=== PATIENT | female | born 1990 | race Caucasian/White ===

== ENCOUNTER 2022-01-08 14:14 | Inpatient (IN) ==
[2022-01-08] MEDS ORDERED: OXYTOCIN 30 UNITS/500 ML BAG IV PRN ×2 (14:18→16:28)
[2022-01-08] MEDS ORDERED: PENICILLIN G POTASSIUM 6 MU in DEXTROSE 5% 250 ML IV STA (14:21)
--- NOTE | 2022-01-08 14:22 | History & Physical Report ---
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 Contractions were every 10 to 15 minutes this morning starting from midnight and they spaced out to every 15 to 8:30 AM. She called and was seen in the office for labor check. She also noted small amount of pinkish leakage of fluid after midnight on January 07 and has been off and on in small amounts since then. She reports good movements. She denies abdominal pain between contractions, fever, chills, nausea or vomiting. She went to the office and her cervix was found to be 5 cm dilated and her ROM tests results came back positive. Now she is being admitted and starting penicillin. Her has been uncomplicated except, 1. IVF , 2. History of foot surgery in first trimester 3. GBS+ Allergies Allergy/AdvReac Type Severity Reaction Status Date / Time No Known Allergies Allergy Verified 06/19/21 09:27 Home Medications Medication Instructions Recorded Confirmed Type vit no.133-ferrous 1 tab PO QAM 06/18/21 06/19/21 History fumarate 28 mg-folic acid 800 mcg tablet () progesterone micronized 200 mg 200 mg VAGINAL BID 06/18/21 06/19/21 History capsule acetaminophen 500 mg tablet 1,000 mg PO Q8H PRN #100 tab 06/19/21 Rx (Tylenol Extra Strength) aspirin 81 mg tablet,delayed 81 mg PO DAILY #30 tab 06/19/21 Rx release Patient History Medical History Currently 10 weeks Fracture dislocation of tarsometatarsal joint Multiple closed fractures of right foot Surgical History H/O vaginal surgery (~02/2021) egg retrieval with anesthesia History of hysterosalpingogram History of in vitro fertilization (04/23/21) [facility] Mandi, follows locally with [facility] application design engineer. 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 History No history of STDs Physical Exam Constitutional: WD/WN, vitals as above well developed, well nourished and + acute distress (with contractions) Gastrointestinal (Abdomen): Inspection/Auscultation: + abdomen distended (gravid, nontender) Genitourinary: normal external appearance Manual OB Exam: + cervical dilation 5 cm, + cervical effacement 80% and + station -2 OB Exam Monitor Tracing: + external uterine monitor used and + category I Results & Data ([facility]) Laboratory Results Lab Results 01/08/22 Range/Units 14:33 WBC 6.94 (4.8-10.8) K/uL RBC 4.17 L (4.2-5.4) M/uL Hgb 11.2 L (12.0-16.0) g/dL Hct 35.3 L (37-47) % MCV 84.7 (80-100) fL MCH 26.9 (25-34) pg MCHC 31.7 L (32-36) g/dL RDW Std Deviation 57.0 H (36.4-46.3) fL RDW Coeff of Tiago 18.7 H (11.5-14.5) % Plt Count 195 (130-400) K/uL MPV 11.5 H (7.4-10.4) fL
[2022-01-08 14:40] LABS: Hematocrit (blood only) 35.3 % (37-47); Hemoglobin 11.2 g/dL (12.0-16.0); Mean Corpuscular Hemoglobin 26.9 pg (25-34); Mean Corpuscular Hgb Conc 31.7 g/dL (32-36); Mean Corpuscular Volume 84.7 fL (80-100); Mean Platelet Volume 11.5 fL (7.4-10.4); Platelet Count 195 K/uL (130-400); RDW Coefficient of Variation 18.7 % (11.5-14.5); Red Blood Count 4.17 M/uL (4.2-5.4); White Blood Count 6.94 K/uL (4.8-10.8)
[2022-01-08] MEDS: LACTATED RINGER'S 1,000 ML IV PRN ×3 (14:45→20:34)
[2022-01-08] MEDS ORDERED: NALBUPHINE HCL INJ 10 MG/ML AMP IV PRN (15:31)
[2022-01-08] MEDS ORDERED: diphenhydrAMINE 50 MG/ML VIAL IV PRN (15:31)
[2022-01-08] MEDS ORDERED: fentaNYL 2MCG/ML ROPIVACAINE 1.25MG/ML 100 ML BAG EPI PRN (15:31)
[2022-01-08] MEDS ORDERED: ePHEDrine sulfate 50 MG/ML AMP IV PRN (15:31)
[2022-01-08] MEDS ORDERED: NALOXONE HCL 0.4 MG/1 ML VIAL/CARP IV PRN (15:31)
[2022-01-08] MEDS ORDERED: SODIUM CHLORIDE 0.9% INJ 10 ML VIAL ONE (15:31)
[2022-01-08] MEDS ORDERED: NALOXONE HCL 1 MG in SODIUM CHLORIDE 0.9% 1000ML 1,000 ML IV PRN (15:31)
[2022-01-08] MEDS ORDERED: ePHEDrine sulfate 50 MG/ML AMP ONE (15:31)
[2022-01-08] MEDS ORDERED: BUPIVACAINE 0.25% 30 ML VIAL ONE (15:31)
--- NOTE | 2022-01-08 15:31 | Anesthesiology Consultation ---
Date of Service January 08, 2022 Assessment & Plan (1) Encounter for pre-operative examination: Chart Review Chart Review: Acceptable Risk for Surgery and Patient NOT seen in Pre Admission Testing Consults Requested none History Allergies Allergy/AdvReac Type Severity Reaction Status Date / Time No Known Allergies Allergy Verified 01/08/22 15:12 Medications Home Medications Medication Instructions Recorded Confirmed Last Taken vit no.133-ferrous 1 tab PO QAM 06/18/21 01/08/22 01/08/22 08:00 fumarate 28 mg-folic acid 800 mcg tablet () progesterone micronized 200 mg 200 mg VAGINAL BID 06/18/21 06/19/21 06/19/21 01:00 capsule acetaminophen 500 mg tablet 1,000 mg PO Q8H PRN #100 tab 06/19/21 01/08/22 08:00 (Tylenol Extra Strength) aspirin 81 mg tablet,delayed 81 mg PO DAILY #30 tab 06/19/21 Unknown release Active Medications Generic Name Dose Route Start Last Admin Trade Name Freq PRN Reason Stop Dose Admin Lactated Ringer's 1,000 mls @ 150 mls/hr 01/08/22 14:18 01/08/22 15:04 Lr IV 01/10/22 14:17 999 mls/hr .[id number] PRN Administration L&D Protocol Protocol Past Medical History Medical History Currently 10 weeks Fracture dislocation of tarsometatarsal joint Multiple closed fractures of right foot Past Family History Family History Other No family history of adverse response to anesthesia Past Surgical History Surgical History H/O vaginal surgery (~02/2021) egg retrieval with anesthesia History of hysterosalpingogram History of in vitro fertilization (04/23/21) [facility] Mandi, follows locally with [facility] chemical research technician. Social History Smoking Status: Never smoker Hx Alcohol Use: No Hx Substance Use: No substance use type: does not use Physical Exam Vital Signs Last Vital Signs Pulse 74 01/08/22 14:30 BP 103/68 01/08/22 14:30 Testing Laboratory Results 01/08/22 14:33
[2022-01-08] MEDS ORDERED: fentaNYL 2MCG/ML ROPIVACAINE 1.25MG/ML 100 ML BAG EPI ONE (15:32)
[2022-01-08] MEDS ORDERED: fentaNYL citrate 100 MCG/2 ML VIAL ONE (15:32)
[2022-01-08] MEDS ORDERED: ONDANSETRON INJ 2 MG/ML 2 ML VIAL IV PRN (16:28)
--- NOTE | 2022-01-08 18:15 | Obstetrical Progress Note ---
Date of Service January 08, 2022 Assessment & Plan Admission and Anticipated Discharge Date Admission Date: January 08, 2022 Subjective Patient is reevaluated. She received epidural for pain and now comfortable. Co ntractions are every 10 to 12 minutes, heart rate is reassuring with category 1 strip and cervix is unchanged at 5-6 cm dilated, 80% effaced, large bulging bag and head at -3 station. Plan to augment with low-dose oxytocin per protocol and AROM with second dose of penicillin. Continue to monitor closely. Results & Data ([facility]) Vital Signs (Past 12 Hours) Vital Signs Temp Pulse Resp BP Pulse Ox 01/08/22 18:11 68 113/70 01/08/22 18:09 65 99 01/08/22 18:04 67 99 01/08/22 17:59 70 99 01/08/22 17:57 69 108/72 01/08/22 17:54 65 99 01/08/22 17:49 75 98 01/08/22 17:44 75 99 01/08/22 17:42 65 137/72 01/08/22 17:39 70 99 01/08/22 17:34 73 99 01/08/22 17:29 71 98 01/08/22 17:27 69 103/70 01/08/22 17:24 67 98 01/08/22 17:19 65 98 01/08/22 17:14 65 99 01/08/22 17:12 37.1 C 60 18 109/62 01/08/22 17:09 63 98 01/08/22 17:04 65 98 01/08/22 16:59 66 98 01/08/22 16:57 63 113/62 01/08/22 16:54 63 98 01/08/22 16:49 72 98 01/08/22 16:44 61 99 01/08/22 16:42 60 140/78 01/08/22 16:39 63 100 01/08/22 16:34 63 99 01/08/22 16:29 67 99 01/08/22 16:26 70 129/74 01/08/22 16:24 68 99 01/08/22 16:19 80 99 01/08/22 16:14 68 99 01/08/22 16:09 68 122/75 99 01/08/22 16:07 71 120/71 01/08/22 16:06 69 119/78 01/08/22 16:04 72 99 01/08/22 16:03 65 113/65 01/08/22 16:01 66 124/78 01/08/22 15:59 84 100 01/08/22 15:58 78 119/71 01/08/22 15:55 73 151/83 H 01/08/22 15:54 75 100 01/08/22 15:49 80 100 01/08/22 15:44 90 100 01/08/22 15:39 71 100 01/08/22 15:19 74 103/68 01/08/22 15:05 37.1 C 18 01/08/22 14:30 37.1 C 74 18 103/68
[2022-01-08] MEDS: PENICILLIN G POTASSIUM 3 MU in DEXTROSE 5% 100 ML IV PRN ×2 (18:35→22:32)
--- NOTE | 2022-01-08 19:46 | Obstetrical Progress Note ---
Date of Service January 08, 2022 Assessment & Plan Admission and Anticipated Discharge Date Admission Date: January 08, 2022 Subjective Patient is comfortable VE; 6/ 80%/ -2, large bulging bag, AROM'ed, moderate meconium fluids, FHR categ I Ctxs irregular, Pitocin is at 4 miu/ min Continue to monitor closely, augment with Pitocin Results & Data ([facility]) Vital Signs (Past 12 Hours) Vital Signs Temp Pulse Resp BP Pulse Ox 01/08/22 19:41 60 116/57 L 01/08/22 19:39 63 98 01/08/22 19:34 66 99 01/08/22 19:29 60 98 01/08/22 19:26 59 L 118/60 01/08/22 19:24 61 98 01/08/22 19:19 56 L 97 01/08/22 19:14 68 99 01/08/22 19:13 36.7 C 18 01/08/22 19:11 65 128/66 01/08/22 19:09 72 98 01/08/22 19:04 68 99 01/08/22 18:59 67 99 01/08/22 18:56 67 103/58 L 01/08/22 18:54 74 98 01/08/22 18:49 69 98 01/08/22 18:44 73 99 01/08/22 18:42 70 103/54 L 01/08/22 18:39 68 99 01/08/22 18:34 71 98 01/08/22 18:29 75 100 01/08/22 18:26 69 118/75 01/08/22 18:24 70 99 01/08/22 18:19 63 98 01/08/22 18:14 73 99 01/08/22 18:11 68 113/70 01/08/22 18:09 65 99 01/08/22 18:05 36.6 C 16 01/08/22 18:04 67 99 01/08/22 17:59 70 99 01/08/22 17:57 69 108/72 01/08/22 17:54 65 99 01/08/22 17:49 75 98 01/08/22 17:44 75 99 01/08/22 17:42 65 137/72 01/08/22 17:39 70 99 01/08/22 17:34 73 99 01/08/22 17:29 71 98 01/08/22 17:27 69 103/70 01/08/22 17:24 67 98 01/08/22 17:19 65 98 01/08/22 17:14 65 99 01/08/22 17:12 37.1 C 60 18 109/62 01/08/22 17:09 63 98 01/08/22 17:04 65 98 01/08/22 16:59 66 98 01/08/22 16:57 63 113/62 01/08/22 16:54 63 98 01/08/22 16:49 72 98 01/08/22 16:44 61 99 01/08/22 16:42 60 140/78 01/08/22 16:39 63 100 01/08/22 16:34 63 99 01/08/22 16:29 67 99 01/08/22 16:26 70 129/74 01/08/22 16:24 68 99 01/08/22 16:19 80 99 01/08/22 16:14 68 99 01/08/22 16:09 68 122/75 99 01/08/22 16:07 71 120/71 01/08/22 16:06 69 119/78 01/08/22 16:04 72 99 01/08/22 16:03 65 113/65 01/08/22 16:01 66 124/78 01/08/22 15:59 84 100 01/08/22 15:58 78 119/71 01/08/22 15:55 73 151/83 H 01/08/22 15:54 75 100 01/08/22 15:49 80 100 01/08/22 15:44 90 100 01/08/22 15:39 71 100 01/08/22 15:19 74 103/68 01/08/22 15:05 37.1 C 18 03 14:30 37.1 C 74 18 103/68
--- NOTE | 2022-01-08 21:25 | Obstetrical Progress Note ---
Date of Service January 08, 2022 Assessment & Plan Admission and Anticipated Discharge Date Admission Date: January 08, 2022 Subjective VE; 9/ 90%/ 1 FHR early decels with ctxswith quick recovery, accels+ Continue to monitor closely Results & Data ([facility]) Vital Signs (Past 12 Hours) Vital Signs Temp Pulse Resp BP Pulse Ox 01/08/22 21:19 57 L 99 01/08/22 21:14 36.7 C 56 L 18 99 01/08/22 21:11 56 L 109/64 01/08/22 21:09 57 L 98 01/08/22 21:04 61 100 01/08/22 20:59 58 L 98 01/08/22 20:56 52 L 100/58 L 01/08/22 20:54 50 L 98 01/08/22 20:49 58 L 98 01/08/22 20:44 56 L 99 01/08/22 20:41 53 L 18 110/59 L 01/08/22 20:39 52 L 100 01/08/22 20:34 56 L 99 01/08/22 20:29 56 L 99 01/08/22 20:27 62 115/65 01/08/22 20:24 57 L 99 01/08/22 20:19 59 L 99 01/08/22 20:14 57 L 99 01/08/22 20:11 52 L 113/64 01/08/22 20:09 60 99 01/08/22 20:04 60 99 01/08/22 19:59 58 L 99 01/08/22 19:57 62 120/66 01/08/22 19:54 65 98 01/08/22 19:49 64 99 01/08/22 19:44 61 98 01/08/22 19:41 60 116/57 L 01/08/22 19:39 63 98 01/08/22 19:34 66 99 01/08/22 19:29 60 98 01/08/22 19:26 59 L 118/60 01/08/22 19:24 61 98 01/08/22 19:19 56 L 97 01/08/22 19:14 68 99 01/08/22 19:13 36.7 C 18 01/08/22 19:11 65 128/66 01/08/22 19:09 72 98 01/08/22 19:04 68 99 01/08/22 18:59 67 99 01/08/22 18:56 67 103/58 L 01/08/22 18:54 74 98 01/08/22 18:49 69 98 01/08/22 18:44 73 99 01/08/22 18:42 70 103/54 L 01/08/22 18:39 68 99 01/08/22 18:34 71 98 01/08/22 18:29 75 100 01/08/22 18:26 69 118/75 01/08/22 18:24 70 99 01/08/22 18:19 63 98 01/08/22 18:14 73 99 01/08/22 18:11 68 113/70 01/08/22 18:09 65 99 01/08/22 18:05 36.6 C 16 01/08/22 18:04 67 99 01/08/22 17:59 70 99 01/08/22 17:57 69 108/72 01/08/22 17:54 65 99 01/08/22 17:49 75 98 01/08/22 17:44 75 99 01/08/22 17:42 65 137/72 01/08/22 17:39 70 99 01/08/22 17:34 73 99 01/08/22 17:29 71 98 01/08/22 17:27 69 103/70 01/08/22 17:24 67 98 01/08/22 17:19 65 98 01/08/22 17:14 65 99 01/08/22 17:12 37.1 C 60 18 109/62 01/08/22 17:09 63 98 01/08/22 17:04 65 98 01/08/22 16:59 66 98 01/08/22 16:57 63 113/62 01/08/22 16:54 63 98 01/08/22 16:49 72 98 01/08/22 16:44 61 99 01/08/22 16:42 60 140/78 01/08/22 16:39 63 100 01/08/22 16:34 63 99 01/08/22 16:29 67 99 01/08/22 16:26 70 129/74 01/08/22 16:24 68 99 01/08/22 16:19 80 99 01/08/22 16:14 68 99 01/08/22 16:09 68 122/75 99 01/08/22 16:07 71 120/71 01/08/22 16:06 69 119/78 01/08/22 16:04 72 99 01/08/22 16:03 65 113/65 01/08/22 16:01 66 124/78 01/08/22 15:59 84 100 01/08/22 15:58 78 119/71 01/08/22 15:55 73 151/83 H 01/08/22 15:54 75 100 01/08/22 15:49 80 100 01/08/22 15:44 90 100 01/08/22 15:39 71 100 01/08/22 15:19 74 103/68 01/08/22 15:05 37.1 C 18 01/08/22 14:30 37.1 C 74 18 103/68
[2022-01-08] MEDS ORDERED: MINERAL OIL 30 ML UDC ONE (23:03)
[2022-01-09] MEDS ORDERED: HYDROCORTISONE ACETATE 25 MG SUPP PR PRN (00:03)
[2022-01-09] MEDS ORDERED: ACETAMINOPHEN 325 MG TAB PO PRN (00:03)
[2022-01-09] MEDS ORDERED: DIPHTHERIA/TETANUS/PERTUSSIS 0.5 ML SYR/VIAL IM ONE (00:03)
[2022-01-09] MEDS ORDERED: OXYTOCIN 30 UNITS/500 ML BAG IV PRN (00:03)
[2022-01-09] MEDS ORDERED: oxyCODONE/ACETAMINOPHEN 5mg/325mg TAB PO PRN (00:03)
[2022-01-09] MEDS ORDERED: BENZOCAINE 20% AER SPR 82.5 GM CAN EXT PRN (00:03)
[2022-01-09] MEDS ORDERED: MEASLES, MUMPS & RUBELLA VIRUS VIAL SQ ONE (00:03)
--- NOTE | 2022-01-09 00:14 | Delivery Summary ---
Vaginal Delivery Summary Date of Service January 09, 2022 Vaginal Delivery Summary Patient was found to be fully dilated and desire to push. She pushed for 30 minutes and delivered the head without difficulty. The shoulders were delivered with minimal traction and baby was handed off to the mother where mouth and nose were suctioned and cord was clamped times and cut at 1 minute delay. The baby was vigorously moving and crying. The cord blood was obtained. Then the vagina and perineum were checked for lacerations there was a partial third-degree perineal laceration. Rectal exam was done and confirmed this to be a partial third-degree, with some of the external sphincter muscles intact and mild tone noted. Rest of the vagina and labia were intact. The gloves were changed and then these external sphincter muscles of anus were held with 2 Allis clamps supported with perineal body muscles and brought to midline. With 2-0 Vicryl U type of sutures and figure of 8 sutures were placed around his muscles. And rectal exam was repeated and excellent sphincter tone and integrity was noted. Gloves were changed again and rest after perineal body muscles bulbocavernosus muscles were repaired with 2-0 Vicryl in a running locked fashion. Then the vagina mucosa was brought together with another 2-0 Vicryl in a running locked fashion and skin in a subcuticular fashion. Excellent hemostasis was achieved. Rectal exam was repeated and excellent tone was noted and no sutures were felt. Then the placenta was found to be in the vagina and delivered spontaneously as intact and complete. Uterus was explored and found to be empty, lower segment was cleared of all clots and debris, fundus was firm and EBL was 100 mL. Mom and baby tolerated procedure well, there was a viable male infant Apgars 8/10 and weight is pending. No complications happened and I was present during whole procedure. At the end of the procedure the sponge, needle and instrument count was correct x2.
[2022-01-09] MEDS: IBUPROFEN 600 MG TAB PO PRN ×4 (00:37→21:16)
--- NOTE | 2022-01-09 01:03 | Anesthesia Procedure Note ---
Date of Service January 09, 2022 Anesthesia Post Epidural Note Vital Signs Vital Signs: Temp Pulse Resp BP Pulse Ox 98.1 F 73 16 102/55 L 100 01/08/22 23:41 01/09/22 00:41 01/09/22 00:41 01/09/22 00:41 01/08/22 23:44 Pain Intensity Lower Back: Pain Intensity: 7 Notes Mental Status: alert / awake / arousable and participated in evaluation Nausea / Vomiting: adequately controlled Pain: adequately controlled Airway Patency, RR, SpO2: stable & adequate BP & HR: stable & adequate Hydration State: stable & adequate Neuraxial Anesthesia: was administered and sensory block is resolving Anesthetic Complications: no major complications apparent and Pt Satisfied with anesthetic care Epidural: Removed without complications and With tip intact
[2022-01-09] MEDS: FERROUS SULFATE 325 MG TAB PO SCH (08:57)
[2022-01-09] MEDS: DOCUSATE SODIUM 100 MG CAP PO SCH ×2 (08:57→21:16)
[2022-01-09] MEDS: PRENATAL VITAMIN 1 TAB PO SCH (09:03)
[2022-01-09] MEDS: POLYETHYLENE (MIRALAX) 17 GM PACK PO SCH (09:12)
--- NOTE | 2022-01-09 09:37 | Obstetrical Progress Note ---
Date of Service January 09, 2022 Assessment & Plan Admission and Anticipated Discharge Date Admission Date: January 08, 2022 Subjective Patient is seen and examined. She feels well, no complaints other than soreness in vagina. Ambulating without dizziness Voiding without difficulty Tolerating regular diet with out N&V Bleeding is minimal No fever/ chills/ CP/ SOB/ N&V/ Leg pain Breast feeding without problems Vital Signs Temp Pulse Pulse Resp BP BP Pulse Ox 01/09/22 07:40 36.7 C 57 L 16 118/77 99 01/09/22 04:00 36.6 C 63 16 112/70 98 01/09/22 01:40 68 16 108/66 01/09/22 01:25 85 106/64 01/09/22 01:15 88 104/63 01/09/22 01:11 76 16 89/59 L 01/09/22 00:41 73 16 102/55 L 01/09/22 00:26 66 18 113/67 01/09/22 00:10 54 L 18 124/74 01/08/22 23:55 51 L 18 132/71 01/08/22 23:44 70 100 01/08/22 23:41 36.7 C 66 18 134/69 01/08/22 23:39 70 100 01/08/22 23:34 68 100 01/08/22 23:29 62 100 01/08/22 23:26 60 135/79 01/08/22 23:24 61 100 01/08/22 23:19 68 100 01/08/22 23:14 75 100 01/08/22 23:12 69 91 01/08/22 23:09 76 100 01/08/22 23:04 93 H 100 01/08/22 22:59 89 99 01/08/22 22:57 68 126/77 01/08/22 22:54 59 L 100 01/08/22 22:49 51 L 99 01/08/22 22:44 54 L 99 01/08/22 22:41 55 L 100/58 L 01/08/22 22:40 36.5 C 16 01/08/22 22:39 55 L 100 01/08/22 22:34 56 L 99 01/08/22 22:29 63 99 01/08/22 22:26 55 L 107/61 03/04/22 22:24 57 L 97 01/08/22 22:19 57 L 97 01/08/22 22:14 55 L 98 01/08/22 22:12 55 L 125/62 01/08/22 22:09 56 L 97 01/08/22 22:04 58 L 97 01/08/22 21:59 57 L 98 01/08/22 21:57 59 L 123/75 01/08/22 21:54 57 L 99 01/08/22 21:49 59 L 99 01/08/22 21:44 61 99 01/08/22 21:43 58 L 133/81 01/08/22 21:39 57 L 99 Lab Results 01/08/22 01/08/22 Range/Units 14:33 14:50 WBC 6.94 (4.8-10.8) K/uL RBC 4.17 L (4.2-5.4) M/uL Hgb 11.2 L (12.0-16.0) g/dL Hct 35.3 L (37-47) % MCV 84.7 (80-100) fL MCH 26.9 (25-34) pg MCHC 31.7 L (32-36) g/dL RDW Std Deviation 57.0 H (36.4-46.3) fL RDW Coeff of Tiago 18.7 H (11.5-14.5) % Plt Count 195 (130-400) K/uL MPV 11.5 H (7.4-10.4) fL SARS-CoV-2, RNA, NAAT NEGATIVE (NEGATIVE) PE: General: Alert, orientedx3, NAD Abd: soft, NT, fundus firm, below Umbilicus Perineum intact, Lochia rubra minimal Ext; NT, no edema AP: 31 yo s/p , ppd# 1 VSS Afebrile doing well Continue routine care All questions were answered D/C home tomorrow Results & Data ([facility]) Vital Signs (Past 12 Hours) Vital Signs Temp Pulse Pulse Resp BP BP Pulse Ox 01/09/22 07:40 36.7 C 57 L 16 118/77 99 01/09/22 04:00 36.6 C 63 16 112/70 98 01/09/22 01:40 68 16 108/66 01/09/22 01:25 85 106/64 01/09/22 01:15 88 104/63 01/09/22 01:11 76 16 89/59 L 01/09/22 00:41 73 16 102/55 L 01/09/22 00:26 66 18 113/67 01/09/22 00:10 54 L 18 124/74 01/08/22 23:55 51 L 18 132/71 01/08/22 23:44 70 100 01/08/22 23:41 36.7 C 66 18 134/69 01/08/22 23:39 70 100 01/08/22 23:34 68 100 01/08/22 23:29 62 100 01/08/22 23:26 60 135/79 01/08/22 23:24 61 100 01/08/22 23:19 68 100 01/08/22 23:14 75 100 01/08/22 23:12 69 91 01/08/22 23:09 76 100 01/08/22 23:04 93 H 100 01/08/22 22:59 89 99 01/08/22 22:57 68 126/77 01/08/22 22:54 59 L 100 01/08/22 22:49 51 L 99 01/08/22 22:44 54 L 99 01/08/22 22:41 55 L 100/58 L 01/08/22 22:40 36.5 C 16 01/08/22 22:39 55 L 100 01/08/22 22:34 56 L 99 01/08/22 22:29 63 99 01/08/22 22:26 55 L 107/61 01/08/22 22:24 57 L 97 01/08/22 22:19 57 L 97 01/08/22 22:14 55 L 98 01/08/22 22:12 55 L 125/62 01/08/22 22:09 56 L 97 01/08/22 22:04 58 L 97 01/08/22 21:59 57 L 98 01/08/22 21:57 59 L 123/75 01/08/22 21:54 57 L 99 01/08/22 21:49 59 L 99 01/08/22 21:44 61 99 01/08/22 21:43 58 L 133/81 01/08/22 21:39 57 L 99
[2022-01-10 06:05] LABS: Hematocrit (blood only) 29.5 % (37-47); Hemoglobin 9.1 g/dL (12.0-16.0); Mean Corpuscular Hemoglobin 26.3 pg (25-34); Mean Corpuscular Hgb Conc 30.8 g/dL (32-36); Mean Corpuscular Volume 85.3 fL (80-100); Mean Platelet Volume 11.2 fL (7.4-10.4); Platelet Count 176 K/uL (130-400); RDW Coefficient of Variation 18.8 % (11.5-14.5); RDW Standard Deviation 57.6 fL (36.4-46.3); Red Blood Count 3.46 M/uL (4.2-5.4); White Blood Count 8.62 K/uL (4.8-10.8)
[2022-01-10] MEDS: POLYETHYLENE (MIRALAX) 17 GM PACK PO SCH (08:52)
[2022-01-10] MEDS: IBUPROFEN 600 MG TAB PO PRN (08:54)
[2022-01-10] MEDS: DOCUSATE SODIUM 100 MG CAP PO SCH (08:54)
[2022-01-10] MEDS: PRENATAL VITAMIN 1 TAB PO SCH (08:56)
[2022-01-10] MEDS: FERROUS SULFATE 325 MG TAB PO SCH (08:56)
--- NOTE | 2022-01-10 09:53 | Obstetrical Progress Note ---
Date of Service January 10, 2022 Assessment & Plan (1) Normal course: PPD #2 pt doing well wishes to be discharged home Subjective Ambulation: ambulating normally Voiding: no voiding problems Passing Gas:: Yes Diet Tolerance:: regular diet Lochia:: Small Feeding Type:: breast feeding Review of Systems All systems reviewed & are unremarkable except as noted in HPI & below Physical Exam Constitutional WD/WN, vitals as above well developed and well nourished Eyes PERRL, conjunctivae normal, anicteric sclerae Neck trachea midline, no thyromegaly Respiratory normal respiratory effort, lungs clear to auscultation Auscultation: no crackles, no rales and no wheezes Cardiovascular RRR, no murmur, no edema Gastrointestinal (Abdomen) normal bowel sounds, soft, nontender, no hepatosplenomegaly Uterus is below umbilicus Musculoskeletal no cyanosis or clubbing, extremities motor strength 5/5 Skin no rashes, warm and dry Neurologic patellar DTR's 2+ bilat, sensation intact Psychiatric A+Ox3, euthymic affect Genitourinary normal external appearance Results & Data ([facility]) Vital Signs (Past 12 Hours) Vital Signs Temp Pulse Resp BP 01/09/22 23:10 36.7 C 64 18 108/70
[2022-01-10] MEDS ORDERED: HYDROCORTISONE HC 2.5% CRM 30GM TUBE EXT PRN (10:00)
[2022-01-10] MEDS ORDERED: bisacodyL 5 MG TABEC PO SCH (20:00)
[2022-01-11] MEDS ORDERED: bisacodyL 10 MG SUPP PR PRN (00:03)
== END 2022-01-10 14:35 | disposition home or self-care (01) | DRG 806 ==
LOC: OPB 14:14 → 4S1 14:15 → 4S2 01-09 02:28
DX: O77.0 Labor and delivery complicated by meconium in amniotic fluid; O99.824 Streptococcus B carrier state complicating childbirth; Z79.82 Long term (current) use of aspirin; O76 Abnormality in fetal heart rate and rhythm complicating labor and delivery; Z37.0 Single live birth; O70.20 Third degree perineal laceration during delivery, unspecified; O42.92 Full-term premature rupture of membranes, unspecified as to length of time between rupture and onset of labor; Z3A.39 39 weeks gestation of pregnancy

== ENCOUNTER 2024-12-09 11:31 | Inpatient (IN) ==
--- NOTE | 2024-12-09 13:16 | History & Physical Report ---
Date of Service December 09, 2024 Assessment & Plan (1) Prolonged antepartum rupture of membranes: (2) Premature rupture of membranes: Plan: 34-year-old -0-0-1 at 38 weeks and 4 days of gestation presenting today with premature rupture of membranes since 9 PM last night, irregular contractions, back pain, decreased movements resolved during hospital stay, Vital signs stable afebrile, heart rate reassuring category 1, Irregular contractions on the monitor, Early labor, GBS negative, Discussed the findings and recommended admission and augmentation of labor with oxytocin per protocol and start antibiotics for prolonged rupture of membranes, Patient understands all and agrees with the plan, All questions were answered. (3) with 38 completed weeks gestation: History of Present Illness Primary Care Provider: Promise Severino DO Patient is a 34 yo at 38.4 wks who has been feeling Leakage of pinkish discharge/fluids and back pain since last night. leakage of fluid started around 9 PM when she suddenly felt a gush and then run to the bathroom and she dripped in the toilet before she started voiding. She has been having small amount of pinkish fluids since then. Back pain and groin pain also started last night around the same time. Does not feel regular contractions. She also noted decreased movement since last night and then started to feel more movement since she came to the hospital. Her has been uncomplicated except she had COVID-19 on June and influenza in October 2024, recovered at home. GBS negative. Allergies Allergy/AdvReac Type Severity Reaction Status Date / Time No Known Allergies Allergy Verified 12/09/24 11:05 Home Medications Medication Instructions Recorded Confirmed Type vit no.133-ferrous 1 tab PO QAM #90 tabs 01/09/22 12/09/24 Rx fumarate 28 mg-folic acid 800 mcg tablet () Patient History Medical History Depression No medications. The patient has attended therapy sessions during the . Depression Anemia The patient reports that she occasionally takes the iron. 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 Family History Other No family history of adverse response to anesthesia Social History Smoking Status: Never smoker Second Hand Exposure: No; Do You Dip or Chew Tobacco: No; Hx Alcohol Use: No Hx Substance Use: No Preferred Language: Greenlandic Communication Ability: Effective Communication Ability Comment: Patient understands and speaks Serbian, declined offered front end architect. Installers Mechanical Required: No Beliefs That Will Affect Care: None marital status: marital status details: Spencer Naidu Current Living Situation: Spouse current occupational status: employed Feels Safe at Home: Yes Safety Concerns: Feels Safe At This Time Assistive Devices: None OB History full-term in January 2022, 2900 g, viable male , no complications. 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 no history of STDs, no history of chlamydia, gonorrhea, herpes Review of Systems as per Subjective / HPI Physical Exam Constitutional: WD/WN, vitals as above well developed, well nourished and + acute distress Gastrointestinal (Abdomen): normal bowel sounds, soft, nontender, no hepatosplenomegaly ( gravid) Genitourinary: normal external appearance Speculum/Bimanual Exam: + abnormal cervical discharge ( pink mucus discharge) OB Exam Abdomen: + vertex Manual OB Exam: + cervical dilation 2 cm, + cervical effacement 50% and + station high OB Exam Monitor Tracing: + external uterine monitor used and + category I nitrazine positive, there is ferning on the slide, AmniSure positive, Bedside ultrasound revealed single viable IUP, vertex, heart rate 140s, movements and breathings seen, DONNA is 12 cm. Results & Data Vital Signs (Past 12 Hours) Vital Signs Temp Pulse Resp BP 12/09/24 11:49 36.6 C 20 12/09/24 11:45 64 101/65 (2) Premature rupture of membranes PROM onset of labor timing: unspecified duration between rupture of membranes and onset of labor PROM gestational age: full term Qualified Code(s): O42.92 - Full-term premature rupture of membranes, unspecified as to length of time between rupture and onset of labor
[2024-12-09] MEDS ORDERED: METHYLERGONOVINE MALEATE 0.2 MG/ML AMP IM PRN (13:30)
[2024-12-09] MEDS ORDERED: LIDOCAINE 1% LOCAL 20 ML VIAL INFIL PRN (13:30)
[2024-12-09] MEDS ORDERED: CALCIUM CARBONATE 500 MG CHEWABLE TAB PO PRN (13:30)
[2024-12-09] MEDS ORDERED: OXYTOCIN 30 UNITS/NSS 30 UNITS/500 ML BAG IV PRN ×2 (13:30→23:05)
[2024-12-09] MEDS: ceFAZolin 1000MG 1,000 MG/7.5 ML SYR IV SCH (14:32)
[2024-12-09] MEDS: SODIUM CHLORIDE 0.9% 1,000 ML IV SCH ×2 (14:33→17:23)
[2024-12-09] MEDS: OXYTOCIN 30 UNITS/NSS 30 UNITS/500 ML BAG IV PRN (14:33)
[2024-12-09 14:41] LABS: Hematocrit (blood only) 37.2 % (37.0-47.0); Hemoglobin 12.6 g/dl (12.0-16.0); Mean Corpuscular Hemoglobin 29.8 pg (25.0-34.0); Mean Corpuscular Hgb Conc 33.9 g/dL (32.0-36.0); Mean Corpuscular Volume 87.9 fL (80.0-100.0); Mean Platelet Volume 11.5 fL (9.4-12.4); Platelet Count 222 K/uL (130-400); RDW Coefficient of Variation 16.3 % (11.5-14.5); RDW Standard Deviation 52.4 fL (36.4-46.3); Red Blood Count 4.23 M/uL (4.20-5.40)
[2024-12-09] MEDS ORDERED: Nursing to Pharmacy Communication SCH (16:00)
[2024-12-09] MEDS: fentANYL 2 MCG/ML BUPIVacaine 0.125%-NSS 100ML BAG ONE (17:03)
[2024-12-09] MEDS ORDERED: ROPIVACAINE 0.5% PF 5 MG/ML 20 ML VIAL EPI PRN (17:07)
[2024-12-09] MEDS ORDERED: diphenhydrAMINE 50 MG/ML VIAL IV PRN (17:07)
[2024-12-09] MEDS ORDERED: NALOXONE HCL 0.4 MG/1 ML VIAL/CARP IV PRN (17:07)
[2024-12-09] MEDS ORDERED: LIDOCAINE 2% MPF LOCAL 5 ML VIAL EPI PRN (17:07)
[2024-12-09] MEDS: LIDOCAINE 2%/EPINEPHRINE 1:200,000 20 ML PF ONE (17:07)
[2024-12-09] MEDS ORDERED: NALBUPHINE HCL INJ 10 MG/ML AMP IV PRN (17:07)
[2024-12-09] MEDS ORDERED: fentANYL 2 MCG/ML BUPIVacaine 0.125%-NSS 100ML BAG EPI PRN (17:07)
[2024-12-09] MEDS: BUPIVACAINE 0.25% PF 30 ML VIAL ONE (17:07)
[2024-12-09] MEDS ORDERED: ONDANSETRON INJ 2 MG/ML 2 ML VIAL IV PRN (17:07)
[2024-12-09] MEDS ORDERED: NALOXONE HCL 1 MG in SODIUM CHLORIDE 0.9% 1,000 ML IV PRN (17:07)
[2024-12-09] MEDS ORDERED: PROMETHAZINE 6.25 MG/50.25 ML BAG IV PRN (17:07)
[2024-12-09] MEDS ORDERED: SODIUM CHLORIDE 0.9% PF INJ 10 ML VIAL EPI PRN (17:07)
--- NOTE | 2024-12-09 17:07 | Anesthesiology Consultation ---
Date of Service December 09, 2024 Assessment & Plan Chart Review Chart Review: Patient NOT seen in Pre Admission Testing and Acceptable Risk for Labor Epidural Consults Requested none ASA ASA2 Proposed Anesthesia Anesthesia Type: Labor Epidural Risk / Benefits Reviewed With: PT / POA / Parent / Guardian, Accepts Plan and Informed Consent Obtained History Height/Weight Height: 5 ft Weight: 58.06 kg Allergies Allergy/AdvReac Type Severity Reaction Status Date / Time No Known Allergies Allergy Verified 12/09/24 11:05 Medications Home Medications Medication Instructions Recorded Confirmed Last Taken vit no.133-ferrous 1 tab PO QAM #90 tabs 01/09/22 12/09/24 12/09/24 fumarate 28 mg-folic acid 800 mcg tablet () Active Medications Generic Name Dose Route Start Last Admin Trade Name Freq PRN Reason Stop Dose Admin Oxytocin 30 units in 500 mls @ 4 mls/hr 12/09/24 13:33 12/09/24 15:40 Pitocin 30 Units/Nss IV 12/11/24 13:32 0.24 units/hr .Q24H PRN 4 mls/hr Labor Induction/Augmentation Titration Protocol 0.24 UNITS/HR Cefazolin Sodium 1,000 mg in 7.5 mls @ 2.5 mls/min 12/09/24 14:00 12/09/24 14:32 Ancef 1000mg IV 12/19/24 13:59 2.5 mls/min Q8H TRINY Administration Past Medical History Medical History (Updated 12/09/24 @ 16:06 by Megan Alvarado RN) Hard of hearing Bilateral Depression No medications. The patient has attended therapy sessions during the . Depression Anemia The patient reports that she occasionally takes the iron. 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 Past Anesthesia History No Hx of Anesthesia Complications and No Family Hx of Anesthesia Complications History of PONV No Hx of PONV and No Hx of Motion Sickness Social History Smoking Status: Never smoker Do You Dip or Chew Tobacco: No Hx Alcohol Use: No Hx Substance Use: No substance use type: does not use Physical Exam Vital Signs Last Vital Signs Temp 36.7 C 12/09/24 14:38 Pulse 54 L 12/09/24 17:03 Resp 20 12/09/24 14:57 BP 132/63 12/09/24 17:03 Pulse Ox 99 12/09/24 17:01 ENMT Mouth: no dentition abnormality Thyromental Distance: > or= 3.5 Finger Breadths Mallampati Class: II Neck normal visual inspection Respiratory normal respiratory effort Auscultation: lungs clear to auscultation bilaterally Cardiovascular Rate/Rhythm: regular rate and regular rhythm Psychiatric Orientation: alert Testing Laboratory Results 12/09/24 14:14
[2024-12-09] MEDS: fentaNYL citrate PF 100 MCG/2 ML VIAL ONE (17:31)
[2024-12-09] MEDS: SODIUM CHLORIDE 0.9% PF INJ 10 ML VIAL ONE (17:31)
[2024-12-09] MEDS: ePHEDrine sulfate 50 MG/ML AMP ONE (17:31)
[2024-12-09] MEDS: SODIUM CHLORIDE 0.9% PF INJ 10 ML VIAL EPI STA (18:00)
[2024-12-09] MEDS: LIDOCAINE 2%/EPINEPHRINE 1:200,000 20 ML PF EPI STA (18:00)
[2024-12-09] MEDS: fentaNYL citrate PF 100 MCG/2 ML VIAL EPI STA (18:00)
[2024-12-09] MEDS: BUPIVACAINE 0.25% PF 30 ML VIAL EPI STA (18:00)
[2024-12-09] MEDS: fentaNYL citrate PF 100 MCG/2 ML VIAL EPI PRN (18:39)
[2024-12-09] MEDS: BUPIVACAINE 0.25% PF 30 ML VIAL EPI PRN (18:39)
--- NOTE | 2024-12-09 18:49 | Obstetrical Progress Note ---
Date of Service December 09, 2024 Assessment & Plan Admission and Anticipated Discharge Date Admission Date: December 09, 2024 Subjective Patient had epidural and was comfortable for a while then started to feel pain in upper abd.omen Very anxious and c/o pain every where, feels likes all cords and bands are bothering her Not responding to most of the question, cries of and on VE; 9/ 90%/ +1 Offered her start pushing vs pain management by anesthesia She states she does not have energy to push, she can not do anything Anesthesia gave bolus and she calmed down, FHR has been categ I with occasional early and variable decels with quick recovery h/o anxiety and depression since last delivery, period in 2021 She has been seeing counselor, online visits from [facility] Has not been on meds. She will think about starting meds . Will consult psychiatry . continue to monitor closely Results & Data Vital Signs (Past 12 Hours) Vital Signs Temp Pulse Resp BP Pulse Ox 12/09/24 18:41 99 12/09/24 18:41 58 L 12/09/24 18:37 18 12/09/24 18:37 18 12/09/24 18:37 55 L 12/09/24 18:37 122/58 L 12/09/24 18:36 100 12/09/24 18:36 66 12/09/24 18:31 100 12/09/24 18:31 66 12/09/24 18:26 100 12/09/24 18:26 73 12/09/24 18:21 100 12/09/24 18:21 67 12/09/24 18:19 64 12/09/24 18:19 103/61 12/09/24 18:16 100 12/09/24 18:16 58 L 12/09/24 18:14 63 12/09/24 18:14 107/68 12/09/24 18:11 100 12/09/24 18:11 66 12/09/24 18:09 62 12/09/24 18:09 111/69 12/09/24 18:06 100 12/09/24 18:06 63 12/09/24 18:04 60 12/09/24 18:04 113/68 12/09/24 18:01 100 12/09/24 18:01 58 L 12/09/24 17:59 56 L 12/09/24 17:59 114/65 12/09/24 17:56 100 12/09/24 17:56 59 L 12/09/24 17:55 57 L 12/09/24 17:55 115/62 12/09/24 17:51 100 12/09/24 17:51 58 L 12/09/24 17:51 58 L 12/09/24 17:51 120/71 12/09/24 17:46 100 12/09/24 17:46 57 L 12/09/24 17:44 53 L 12/09/24 17:44 20 105/60 12/09/24 17:41 100 12/09/24 17:41 55 L 12/09/24 17:40 18 12/09/24 17:40 18 12/09/24 17:40 59 L 12/09/24 17:40 20 115/65 12/09/24 17:36 100 12/09/24 17:36 59 L 12/09/24 17:35 58 L 12/09/24 17:35 102/61 12/09/24 17:31 100 12/09/24 17:31 57 L 12/09/24 17:31 100/59 L 12/09/24 17:26 100 12/09/24 17:26 60 12/09/24 17:23 63 12/09/24 17:23 20 108/66 12/09/24 17:21 100 12/09/24 17:21 64 12/09/24 17:21 101/60 12/09/24 17:19 63 12/09/24 17:19 20 101/60 12/09/24 17:17 65 12/09/24 17:17 20 105/60 12/09/24 17:16 100 12/09/24 17:16 66 12/09/24 17:15 61 12/09/24 17:15 99/58 L 12/09/24 17:13 20 12/09/24 17:13 20 12/09/24 17:13 63 12/09/24 17:13 36.7 C 20 103/62 12/09/24 17:11 100 12/09/24 17:11 66 12/09/24 17:11 64 12/09/24 17:11 104/65 12/09/24 17:09 20 12/09/24 17:09 20 12/09/24 17:09 62 12/09/24 17:09 101/59 L 12/09/24 17:07 18 12/09/24 17:07 18 12/09/24 17:07 56 L 12/09/24 17:07 110/59 L 12/09/24 17:06 100 12/09/24 17:06 57 L 12/09/24 17:05 18 12/09/24 17:05 18 12/09/24 17:05 53 L 12/09/24 17:05 116/63 12/09/24 17:03 18 12/09/24 17:03 18 12/09/24 17:03 54 L 12/09/24 17:03 132/63 12/09/24 17:01 99 12/09/24 17:01 58 L 12/09/24 17:00 61 12/09/24 17:00 116/60 12/09/24 16:56 100 12/09/24 16:56 83 12/09/24 16:51 100 12/09/24 16:51 55 L 12/09/24 14:57 20 12/09/24 14:57 20 12/09/24 14:57 57 L 12/09/24 14:57 107/65 12/09/24 14:38 20 12/09/24 14:38 36.7 C 20 12/09/24 14:04 36.7 C 20 12/09/24 11:49 36.6 C 20 12/09/24 11:45 64 101/65
--- NOTE | 2024-12-09 19:15 | Anesthesia Procedure Note ---
Date of Service December 09, 2024 Anesthesia Epidural Re-Dose Vital Signs Temp Pulse Resp BP Pulse Ox 98.1 F 58 L 18 103/59 L 99 12/09/24 17:13 12/09/24 19:11 12/09/24 18:37 12/09/24 19:02 12/09/24 19:11 Notes Pain Intensity: 0 Dilatation (cm): 9.5 Effacement (%): 100 Called by nursing to evaluate epidural as the patient is having increased pain. The epidural was re-dosed with the following medications (all medications via epidural route) after negative aspiration of the epidural catheter for CSF/HEME. 0.25 % Bupivacaine (3ml) with 100 mcg Fentanyl After Epidural Re-Dose Mental Status: alert / awake / arousable Pain: improving with treatment Airway Patency, RR, SpO2: stable & adequate BP & HR: stable & adequate
[2024-12-09] MEDS: SODIUM CHLORIDE 0.9% 500 ML IV SCH (19:20)
[2024-12-09] MEDS: ePHEDrine sulfate 50 MG/ML AMP IV PRN (19:52)
--- NOTE | 2024-12-09 20:12 | Obstetrical Progress Note ---
Date of Service December 09, 2024 Assessment & Plan Admission and Anticipated Discharge Date Admission Date: December 09, 2024 Subjective Patient has been comfortable and calmed down No pain nor pressure Offered VE and start pushing, but she declined, she wants to rest/ sleep for a while FHR categ I Continue to monitor Results & Data Vital Signs (Past 12 Hours) Vital Signs Temp Pulse Resp BP Pulse Ox 12/09/24 20:06 100 12/09/24 20:06 72 12/09/24 20:05 57 L 12/09/24 20:05 132/77 12/09/24 20:01 100 12/09/24 20:01 82 12/09/24 20:01 67 12/09/24 20:01 99/57 L 12/09/24 19:56 100 12/09/24 19:56 63 12/09/24 19:55 57 L 12/09/24 19:55 121/67 12/09/24 19:51 100 12/09/24 19:51 67 12/09/24 19:51 77/44 L 12/09/24 19:46 100 12/09/24 19:46 61 12/09/24 19:45 71 12/09/24 19:45 100/55 L 12/09/24 19:41 99 12/09/24 19:41 62 12/09/24 19:36 99 12/09/24 19:36 58 L 12/09/24 19:31 100 12/09/24 19:31 62 12/09/24 19:31 100/69 12/09/24 19:26 100 12/09/24 19:26 61 12/09/24 19:21 99 12/09/24 19:21 58 L 12/09/24 19:17 61 12/09/24 19:17 109/70 12/09/24 19:16 99 12/09/24 19:16 59 L 12/09/24 19:11 99 12/09/24 19:11 58 L 12/09/24 19:10 36.8 C 18 12/09/24 19:10 18 12/09/24 19:10 36.8 C 18 12/09/24 19:06 97 12/09/24 19:06 79 12/09/24 19:02 72 12/09/24 19:02 103/59 L 12/09/24 19:01 99 12/09/24 19:01 66 12/09/24 19:00 53 L 12/09/24 19:00 103/63 12/09/24 18:56 98 12/09/24 18:56 70 12/09/24 18:51 98 12/09/24 18:51 57 L 12/09/24 18:46 100 12/09/24 18:46 59 L 12/09/24 18:46 56 L 12/09/24 18:46 110/68 12/09/24 18:41 99 12/09/24 18:41 58 L 12/09/24 18:37 18 12/09/24 18:37 18 12/09/24 18:37 55 L 12/09/24 18:37 122/58 L 12/09/24 18:36 100 12/09/24 18:36 66 12/09/24 18:31 100 12/09/24 18:31 66 12/09/24 18:26 100 12/09/24 18:26 73 12/09/24 18:21 100 12/09/24 18:21 67 12/09/24 18:19 64 12/09/24 18:19 18 103/61 12/09/24 18:16 100 12/09/24 18:16 58 L 12/09/24 18:14 63 12/09/24 18:14 107/68 12/09/24 18:11 100 12/09/24 18:11 66 12/09/24 18:09 62 12/09/24 18:09 111/69 12/09/24 18:06 100 12/09/24 18:06 63 12/09/24 18:04 60 12/09/24 18:04 18 113/68 12/09/24 18:01 100 12/09/24 18:01 58 L 12/09/24 17:59 56 L 12/09/24 17:59 114/65 12/09/24 17:56 100 12/09/24 17:56 59 L 12/09/24 17:55 57 L 12/09/24 17:55 115/62 12/09/24 17:51 100 12/09/24 17:51 58 L 12/09/24 17:51 58 L 12/09/24 17:51 18 120/71 12/09/24 17:46 100 12/09/24 17:46 57 L 12/09/24 17:44 53 L 12/09/24 17:44 20 105/60 12/09/24 17:41 100 12/09/24 17:41 55 L 12/09/24 17:40 18 12/09/24 17:40 18 12/09/24 17:40 59 L 12/09/24 17:40 20 115/65 12/09/24 17:36 100 12/09/24 17:36 59 L 12/09/24 17:35 58 L 12/09/24 17:35 102/61 12/09/24 17:31 100 12/09/24 17:31 57 L 12/09/24 17:31 100/59 L 12/09/24 17:26 100 12/09/24 17:26 60 12/09/24 17:23 63 12/09/24 17:23 20 108/66 12/09/24 17:21 100 12/09/24 17:21 64 12/09/24 17:21 101/60 12/09/24 17:19 63 12/09/24 17:19 20 101/60 12/09/24 17:17 65 12/09/24 17:17 20 105/60 12/09/24 17:16 100 12/09/24 17:16 66 12/09/24 17:15 61 12/09/24 17:15 99/58 L 12/09/24 17:13 20 12/09/24 17:13 20 12/09/24 17:13 63 12/09/24 17:13 36.7 C 20 103/62 12/09/24 17:11 100 12/09/24 17:11 66 12/09/24 17:11 64 12/09/24 17:11 104/65 12/09/24 17:09 20 12/09/24 17:09 20 12/09/24 17:09 62 12/09/24 17:09 101/59 L 12/09/24 17:07 18 12/09/24 17:07 18 12/09/24 17:07 56 L 12/09/24 17:07 110/59 L 12/09/24 17:06 100 12/09/24 17:06 57 L 12/09/24 17:05 18 12/09/24 17:05 18 12/09/24 17:05 53 L 12/09/24 17:05 116/63 12/09/24 17:03 18 12/09/24 17:03 18 12/09/24 17:03 54 L 12/09/24 17:03 132/63 12/09/24 17:01 99 12/09/24 17:01 58 L 12/09/24 17:00 61 12/09/24 17:00 116/60 12/09/24 16:56 100 12/09/24 16:56 83 12/09/24 16:51 100 12/09/24 16:51 55 L 12/09/24 14:57 20 12/09/24 14:57 20 12/09/24 14:57 57 L 12/09/24 14:57 107/65 12/09/24 14:38 20 12/09/24 14:38 36.7 C 20 12/09/24 14:04 36.7 C 20 12/09/24 11:49 36.6 C 20 12/09/24 11:45 64 101/65
[2024-12-09] MEDS ORDERED: oxyCODONE/ACETAMINOPHEN 5mg/325mg TAB PO PRN (23:05)
[2024-12-09] MEDS ORDERED: HYDROCORTISONE ACETATE 25 MG SUPP PR PRN (23:05)
[2024-12-09] MEDS ORDERED: ACETAMINOPHEN 325 MG TAB PO PRN (23:05)
--- NOTE | 2024-12-09 23:08 | Delivery Summary ---
Vaginal Delivery Summary Date of Service December 09, 2024 Vaginal Delivery Summary Patient was found to be fully dilated and desires to push. She pushed with 2 contractions min and delivered the head and then shoulders came spontaneously without traction at 22:30. Nuchal cord around neckx2 reduced. The baby was handed off to the mother. The cord was clampedx2 and cut at 1 minute. The vagina and perineum were checked and found to have 2nd degree perineal laceration. Rectal exam was done and noted good sphincter tone. The gloves were changes. The vaginal mucosa was repaired with 2/0 vicryl and skin on subcuticular fashion. The placenta was delivered spontaneously as intact and complete . The uterus was explored and found to be empty. EBL was 274 ml. The fundus was firm The baby was a viable male infant, Apgars 8/9, the weight is pending The mother and the baby tolerated the procedure well. No complications happened and I was present during whole procedure.
[2024-12-09] MEDS: MEASLES, MUMPS & RUBELLA VIRUS VACCINE (MMR) 0.5ML VIAL SQ ONE (23:38)
[2024-12-09] MEDS: DIPHTHER/TETAN/PERTUS Vaccine (Tdap, Adol/Adult) 0.5mL IM ONE (23:39)
[2024-12-10] MEDS: ACETAMINOPHEN 325 MG TAB PO PRN (00:38)
[2024-12-10] MEDS: BENZOCAINE 20% SPRY 85 APPLN/85 GM CAN EXT PRN (00:38)
--- NOTE | 2024-12-10 01:15 | Anesthesia Procedure Note ---
Date of Service December 10, 2024 Anesthesia Post Epidural Note Vital Signs Vital Signs: Temp Pulse Resp BP Pulse Ox 98.2 F 70 18 104/52 L 96 12/10/24 00:30 12/10/24 01:01 12/10/24 00:30 12/10/24 01:01 12/09/24 23:01 Pain Intensity Lower Abdomen: Pain Intensity: 0 Back: Pain Intensity: 3 Notes Mental Status: alert / awake / arousable and participated in evaluation Nausea / Vomiting: adequately controlled Pain: adequately controlled Airway Patency, RR, SpO2: stable & adequate BP & HR: stable & adequate Hydration State: stable & adequate Neuraxial Anesthesia: was administered and sensory block is resolving Anesthetic Complications: no major complications apparent and Pt Satisfied with anesthetic care Epidural: Removed without complications and With tip intact
--- NOTE | 2024-12-10 02:30 | Obstetrical Progress Note ---
Date of Service December 10, 2024 Assessment & Plan Admission and Anticipated Discharge Date Admission Date: December 09, 2024 Subjective Patient is reevaluated her nurse was not sure about her skin color being yellow or not No complaints other than being tired No H/A Change in vision/ Epigastric or RUQ pain Discussed to start Zoloft for depression and she desires to start Declined psych consultation Check Labs Continue to monitor Results & Data Vital Signs (Past 12 Hours) Vital Signs Temp Pulse Resp BP Pulse Ox 12/10/24 01:01 70 104/52 L 12/10/24 01:00 37.0 C 18 12/10/24 00:45 70 101/58 L 12/10/24 00:30 36.8 C 18 12/10/24 00:30 36.8 C 18 12/10/24 00:30 61 98/55 L 12/10/24 00:16 50 L 120/63 12/10/24 00:00 50 L 108/60 12/09/24 23:45 36.8 C 18 12/09/24 23:45 50 L 12/09/24 23:45 117/55 L 12/09/24 23:30 36.8 C 18 12/09/24 23:30 55 L 12/09/24 23:30 101/52 L 12/09/24 23:16 65 12/09/24 23:16 116/67 12/09/24 23:15 36.8 C 18 12/09/24 23:01 96 12/09/24 23:01 59 L 12/09/24 23:00 36.8 C 18 12/09/24 23:00 60 12/09/24 23:00 110/57 L 12/09/24 22:56 97 12/09/24 22:56 68 12/09/24 22:51 98 12/09/24 22:51 54 L 12/09/24 22:46 99 12/09/24 22:46 58 L 12/09/24 22:45 57 L 12/09/24 22:45 110/59 L 12/09/24 22:41 98 12/09/24 22:41 68 12/09/24 22:36 98 12/09/24 22:36 63 12/09/24 22:31 97 12/09/24 22:31 75 12/09/24 22:31 70 12/09/24 22:31 108/60 12/09/24 22:26 99 12/09/24 22:26 61 12/09/24 22:21 99 12/09/24 22:21 79 12/09/24 22:16 99 12/09/24 22:16 71 12/09/24 22:15 78 12/09/24 22:15 108/75 12/09/24 22:11 99 12/09/24 22:11 59 L 12/09/24 22:06 100 12/09/24 22:06 67 12/09/24 22:01 100 12/09/24 22:01 73 12/09/24 22:00 59 L 12/09/24 22:00 103/56 L 12/09/24 21:56 100 12/09/24 21:56 62 12/09/24 21:51 100 12/09/24 21:51 57 L 12/09/24 21:46 100 12/09/24 21:46 67 12/09/24 21:45 74 12/09/24 21:45 111/66 12/09/24 21:41 100 12/09/24 21:41 58 L 12/09/24 21:36 100 12/09/24 21:36 64 12/09/24 21:31 100 12/09/24 21:31 60 12/09/24 21:31 123/75 12/09/24 21:26 100 12/09/24 21:26 62 12/09/24 21:21 100 12/09/24 21:21 89 12/09/24 21:16 100 12/09/24 21:16 66 12/09/24 21:16 114/61 12/09/24 21:11 100 12/09/24 21:11 89 12/09/24 21:10 18 12/09/24 21:10 36.7 C 18 12/09/24 21:06 100 12/09/24 21:06 62 12/09/24 21:01 100 12/09/24 21:01 58 L 12/09/24 21:00 61 12/09/24 21:00 106/64 12/09/24 20:56 100 12/09/24 20:56 63 12/09/24 20:51 100 12/09/24 20:51 70 12/09/24 20:47 90 12/09/24 20:47 92/53 L 12/09/24 20:46 100 12/09/24 20:46 79 12/09/24 20:41 100 12/09/24 20:41 58 L 12/09/24 20:36 100 12/09/24 20:36 65 12/09/24 20:35 56 L 12/09/24 20:35 113/72 12/09/24 20:32 77 12/09/24 20:32 91/57 L 12/09/24 20:31 100 12/09/24 20:31 76 12/09/24 20:26 100 12/09/24 20:26 67 12/09/24 20:21 100 12/09/24 20:21 59 L 12/09/24 20:16 100 12/09/24 20:16 57 L 12/09/24 20:15 68 12/09/24 20:15 99/56 L 12/09/24 20:11 100 12/09/24 20:11 57 L 12/09/24 20:06 100 12/09/24 20:06 72 12/09/24 20:05 57 L 12/09/24 20:05 132/77 12/09/24 20:01 100 12/09/24 20:01 82 12/09/24 20:01 67 12/09/24 20:01 99/57 L 12/09/24 19:56 100 12/09/24 19:56 63 12/09/24 19:55 57 L 12/09/24 19:55 121/67 12/09/24 19:51 100 12/09/24 19:51 67 12/09/24 19:51 77/44 L 12/09/24 19:46 100 12/09/24 19:46 61 12/09/24 19:45 71 12/09/24 19:45 100/55 L 12/09/24 19:41 99 12/09/24 19:41 62 12/09/24 19:36 99 12/09/24 19:36 58 L 12/09/24 19:31 100 12/09/24 19:31 62 12/09/24 19:31 100/69 12/09/24 19:26 100 12/09/24 19:26 61 02/02/25 19:21 99 12/09/24 19:21 58 L 12/09/24 19:17 61 12/09/24 19:17 109/70 12/09/24 19:16 99 12/09/24 19:16 59 L 12/09/24 19:11 99 12/09/24 19:11 58 L 12/09/24 19:10 36.8 C 18 12/09/24 19:10 18 12/09/24 19:10 36.8 C 18 12/09/24 19:06 97 12/09/24 19:06 79 12/09/24 19:02 72 12/09/24 19:02 103/59 L 12/09/24 19:01 99 12/09/24 19:01 66 12/09/24 19:00 53 L 12/09/24 19:00 103/63 12/09/24 18:56 98 12/09/24 18:56 70 12/09/24 18:51 98 12/09/24 18:51 57 L 12/09/24 18:46 100 12/09/24 18:46 59 L 12/09/24 18:46 56 L 12/09/24 18:46 110/68 12/09/24 18:41 99 12/09/24 18:41 58 L 12/09/24 18:37 18 12/09/24 18:37 18 12/09/24 18:37 55 L 12/09/24 18:37 122/58 L 12/09/24 18:36 100 12/09/24 18:36 66 12/09/24 18:31 100 12/09/24 18:31 66 12/09/24 18:26 100 12/09/24 18:26 73 12/09/24 18:21 100 12/09/24 18:21 67 12/09/24 18:19 64 12/09/24 18:19 18 103/61 12/09/24 18:16 100 12/09/24 18:16 58 L 12/09/24 18:14 63 12/09/24 18:14 107/68 12/09/24 18:11 100 12/09/24 18:11 66 12/09/24 18:09 62 12/09/24 18:09 111/69 12/09/24 18:06 100 12/09/24 18:06 63 12/09/24 18:04 60 12/09/24 18:04 18 113/68 12/09/24 18:01 100 12/09/24 18:01 58 L 12/09/24 17:59 56 L 12/09/24 17:59 114/65 12/09/24 17:56 100 12/09/24 17:56 59 L 12/09/24 17:55 57 L 12/09/24 17:55 115/62 12/09/24 17:51 100 12/09/24 17:51 58 L 12/09/24 17:51 58 L 12/09/24 17:51 18 120/71 12/09/24 17:46 100 12/09/24 17:46 57 L 12/09/24 17:44 53 L 12/09/24 17:44 20 105/60 12/09/24 17:41 100 12/09/24 17:41 55 L 12/09/24 17:40 18 12/09/24 17:40 18 12/09/24 17:40 59 L 12/09/24 17:40 20 115/65 12/09/24 17:36 100 12/09/24 17:36 59 L 12/09/24 17:35 58 L 12/09/24 17:35 102/61 12/09/24 17:31 100 12/09/24 17:31 57 L 12/09/24 17:31 100/59 L 12/09/24 17:26 100 12/09/24 17:26 60 12/09/24 17:23 63 12/09/24 17:23 20 108/66 12/09/24 17:21 100 12/09/24 17:21 64 12/09/24 17:21 101/60 12/09/24 17:19 63 12/09/24 17:19 20 101/60 12/09/24 17:17 65 12/09/24 17:17 20 105/60 12/09/24 17:16 100 12/09/24 17:16 66 12/09/24 17:15 61 12/09/24 17:15 99/58 L 12/09/24 17:13 20 12/09/24 17:13 20 12/09/24 17:13 63 12/09/24 17:13 36.7 C 20 103/62 12/09/24 17:11 100 12/09/24 17:11 66 12/09/24 17:11 64 12/09/24 17:11 104/65 12/09/24 17:09 20 12/09/24 17:09 20 12/09/24 17:09 62 12/09/24 17:09 101/59 L 12/09/24 17:07 18 12/09/24 17:07 18 12/09/24 17:07 56 L 12/09/24 17:07 110/59 L 12/09/24 17:06 100 12/09/24 17:06 57 L 12/09/24 17:05 18 12/09/24 17:05 18 12/09/24 17:05 53 L 12/09/24 17:05 116/63 12/09/24 17:03 18 12/09/24 17:03 18 12/09/24 17:03 54 L 12/09/24 17:03 132/63 12/09/24 17:01 99 12/09/24 17:01 58 L 12/09/24 17:00 61 12/09/24 17:00 116/60 12/09/24 16:56 100 12/09/24 16:56 83 12/09/24 16:51 100 12/09/24 16:51 55 L 12/09/24 14:57 20 12/09/24 14:57 20 12/09/24 14:57 57 L 12/09/24 14:57 107/65 12/09/24 14:38 20 12/09/24 14:38 36.7 C 20
[2024-12-10 02:33] LABS: Basophils # (auto) 0.01 K/uL (0.00-0.20); Basophils % (auto) 0.1 %; Hematocrit (blood only) 32.3 % (37.0-47.0); Hemoglobin 10.7 g/dl (12.0-16.0); Immature Granulocytes # (auto) 0.03 K/uL (0.01-0.20); Immature Granulocytes % (auto) 0.3 %; Lymphocytes # (auto) 0.88 K/uL (1.20-3.40); Lymphocytes % (auto) 8.1 %; Mean Corpuscular Hemoglobin 29.4 pg (25.0-34.0); Mean Corpuscular Hgb Conc 33.1 g/dL (32.0-36.0); Mean Corpuscular Volume 88.7 fL (80.0-100.0); Mean Platelet Volume 11.3 fL (9.4-12.4); Monocytes # (auto) 0.53 K/uL (0.11-0.59); Monocytes % (auto) 4.9 %; Neutrophils # (auto) 9.43 K/uL (1.40-6.50); Neutrophils % (auto) 86.6 %; Platelet Count 183 K/uL (130-400); RDW Coefficient of Variation 16.2 % (11.5-14.5); RDW Standard Deviation 53.1 fL (36.4-46.3); Red Blood Count 3.64 M/uL (4.20-5.40); White Blood Count 10.88 K/ul (4.8-10.8)
[2024-12-10 02:43] LABS: Albumin Globulin Ratio 1.1 (0.9-2); Albumin Level 2.8 gm/dl (3.4-5.0); BUN Creatinine Ratio 19.1 (10-20); Bilirubin Direct 0.1 mg/dl (0-0.2); Bilirubin,Total 0.4 mg/dl (0.2-1.0); Calcium 8.3 mg/dl (8.6-10.3); Creatinine Clr Calc Pharmacy 137.1 ml/min; Globulin 2.6 gm/dl (2.5-4.0); Potassium 3.2 mmol/L (3.5-5.1); Total Protein 5.4 gm/dl (6.0-8.3)
[2024-12-10] MEDS: IBUPROFEN 600 MG TAB PO PRN (09:12)
[2024-12-10] MEDS: PRENATAL VITAMIN 1 TAB PO SCH (09:12)
[2024-12-10] MEDS: DOCUSATE SODIUM 100 MG CAP PO SCH (09:12)
[2024-12-10] MEDS: FERROUS SULFATE 325 MG TAB PO SCH (09:12)
[2024-12-10] MEDS: SERTRALINE HCL 50 MG TABLET PO SCH (09:12)
--- NOTE | 2024-12-10 09:42 | Obstetrical Progress Note ---
Date of Service December 10, 2024 Subjective Ambulation: ambulating normally Voiding: no voiding problems Passing Gas:: Yes Diet Tolerance:: regular diet Lochia:: Small Feeding Type:: breast feeding Current Pain Level(1-10): 2 doing well some abdominal discomfort Physical Exam Constitutional WD/WN, vitals as above Gastrointestinal (Abdomen) Inspection/Auscultation: abdomen normal to inspection abdomen slightly tender. no rebound or guarding. fundus firm below U. Musculoskeletal Extremities: extremities normal to inspection Skin no rashes, warm and dry Neurologic patellar DTR's 2+ bilat, sensation intact Psychiatric A+Ox3, euthymic affect Results & Data Vital Signs (Past 12 Hours) Vital Signs Temp Pulse Pulse Resp BP BP Pulse Ox 12/10/24 08:26 36.6 C 50 L 16 97/61 L 98 12/10/24 07:50 36.5 C 51 L 16 97/61 L 12/10/24 04:45 36.5 C 55 L 16 97/59 L 97 12/10/24 01:40 36.6 C 52 L 16 106/63 97 12/10/24 01:01 70 104/52 L 12/10/24 01:00 37.0 C 18 12/10/24 00:45 70 101/58 L 12/10/24 00:30 36.8 C 18 12/10/24 00:30 36.8 C 18 12/10/24 00:30 61 98/55 L 12/10/24 00:16 50 L 120/63 12/10/24 00:00 50 L 108/60 12/09/24 23:45 36.8 C 18 12/09/24 23:45 50 L 12/09/24 23:45 117/55 L 12/09/24 23:30 36.8 C 18 12/09/24 23:30 55 L 12/09/24 23:30 101/52 L 12/09/24 23:16 65 12/09/24 23:16 116/67 12/09/24 23:15 36.8 C 18 12/09/24 23:01 96 12/09/24 23:01 59 L 12/09/24 23:00 36.8 C 18 12/09/24 23:00 60 12/09/24 23:00 110/57 L 12/09/24 22:56 97 12/09/24 22:56 68 12/09/24 22:51 98 12/09/24 22:51 54 L 12/09/24 22:46 99 12/09/24 22:46 58 L 12/09/24 22:45 57 L 12/09/24 22:45 110/59 L 12/09/24 22:41 98 12/09/24 22:41 68 12/09/24 22:36 98 12/09/24 22:36 63 12/09/24 22:31 97 12/09/24 22:31 75 12/09/24 22:31 70 12/09/24 22:31 108/60 12/09/24 22:26 99 12/09/24 22:26 61 12/09/24 22:21 99 12/09/24 22:21 79 12/09/24 22:16 99 12/09/24 22:16 71 12/09/24 22:15 78 12/09/24 22:15 108/75 12/09/24 22:11 99 12/09/24 22:11 59 L 12/09/24 22:06 100 12/09/24 22:06 67 12/09/24 22:01 100 12/09/24 22:01 73 12/09/24 22:00 59 L 12/09/24 22:00 103/56 L 12/09/24 21:56 100 12/09/24 21:56 62 12/09/24 21:51 100 12/09/24 21:51 57 L 12/09/24 21:46 100 12/09/24 21:46 67 12/09/24 21:45 74 12/09/24 21:45 111/66 12/09/24 21:41 100 12/09/24 21:41 58 L O2 Del Method 12/10/24 08:26 Room Air 12/10/24 07:50 Room Air 12/10/24 04:45 Room Air 12/10/24 01:40 Room Air 12/10/24 01:01 12/10/24 01:00 12/10/24 00:45 12/10/24 00:30 12/10/24 00:30 12/10/24 00:30 12/10/24 00:16 12/10/24 00:00 12/09/24 23:45 12/09/24 23:45 12/09/24 23:45 12/09/24 23:30 12/09/24 23:30 12/09/24 23:30 12/09/24 23:16 12/09/24 23:16 12/09/24 23:15 12/09/24 23:01 12/09/24 23:01 12/09/24 23:00 12/09/24 23:00 12/09/24 23:00 12/09/24 22:56 12/09/24 22:56 12/09/24 22:51 12/09/24 22:51 12/09/24 22:46 12/09/24 22:46 12/09/24 22:45 12/09/24 22:45 12/09/24 22:41 12/09/24 22:41 12/09/24 22:36 12/09/24 22:36 12/09/24 22:31 12/09/24 22:31 12/09/24 22:31 12/09/24 22:31 12/09/24 22:26 12/09/24 22:26 12/09/24 22:21 12/09/24 22:21 12/09/24 22:16 12/09/24 22:16 12/09/24 22:15 12/09/24 22:15 12/09/24 22:11 12/09/24 22:11 12/09/24 22:06 12/09/24 22:06 12/09/24 22:01 12/09/24 22:01 12/09/24 22:00 12/09/24 22:00 12/09/24 21:56 12/09/24 21:56 12/09/24 21:51 12/09/24 21:51 12/09/24 21:46 12/09/24 21:46 12/09/24 21:45 12/09/24 21:45 12/09/24 21:41 12/09/24 21:41 Laboratory Results Laboratory Results - last 72 hr 12/09/24 12/09/24 12/10/24 14:14 18:50 02:11 WBC 8.00 RBC 4.23 Hgb 12.6 Hct 37.2 MCV 87.9 MCH 29.8 MCHC 33.9 RDW Std Deviation 52.4 H RDW Coeff of [place] 16.3 H Plt Count 222 MPV 11.5 Immature Gran % (Auto) Neut % (Auto) Lymph % (Auto) Slope % (Auto) Eos % (Auto) Baso % (Auto) Neut # (Auto) Lymph # (Auto) Slope # (Auto) Eos # (Auto) Baso # (Auto) Immature Gran # (Auto) Sodium 135 L Potassium 3.2 L Chloride 110 H Carbon Dioxide 18 L Anion Gap 7 BUN 9 Creatinine 0.47 L Est Cr Clr Drug Dosing 137.1 eGFR 129.64 BUN/Creatinine Ratio 19.1 Glucose 139 H Calcium 8.3 L Total Bilirubin 0.4 Direct Bilirubin 0.1 AST 24 ALT 26 Alkaline Phosphatase 131 H Total Protein 5.4 L Albumin 2.8 L Globulin 2.6 Albumin/Globulin Ratio 1.1 Amniotic Protein POS Treponema pallidum Ab Negative 12/10/24 02:14 WBC 10.88 H RBC 3.64 L Hgb 10.7 L Hct 32.3 L MCV 88.7 MCH 29.4 MCHC 33.1 RDW Std Deviation 53.1 H RDW Coeff of [place] 16.2 H Plt Count 183 MPV 11.3 Immature Gran % (Auto) 0.3 Neut % (Auto) 86.6 Lymph % (Auto) 8.1 Slope % (Auto) 4.9 Eos % (Auto) 0.0 Baso % (Auto) 0.1 Neut # (Auto) 9.43 H Lymph # (Auto) 0.88 L Slope # (Auto) 0.53 Eos # (Auto) 0.00 Baso # (Auto) 0.01 Immature Gran # (Auto) 0.03 Sodium Potassium Chloride Carbon Dioxide Anion Gap BUN Creatinine Est Cr Clr Drug Dosing eGFR BUN/Creatinine Ratio Glucose Calcium Total Bilirubin Direct Bilirubin AST ALT Alkaline Phosphatase Total Protein Albumin Globulin Albumin/Globulin Ratio Amniotic Protein Treponema pallidum Ab
[2024-12-10] MEDS: bisacodyL 5 MG TABEC PO SCH (20:55)
[2024-12-11 04:38] VITALS: RESP 16; O2SAT 99
[2024-12-11 06:23] LABS: Hematocrit (blood only) 33.2 % (37.0-47.0); Hemoglobin 10.8 g/dl (12.0-16.0)
--- NOTE | 2024-12-11 09:03 | Obstetrical Progress Note ---
Date of Service December 11, 2024 Assessment & Plan Admission and Anticipated Discharge Date Admission Date: December 09, 2024 Subjective abdomen soft and non tender no calf tenderness ambulating well vaginal bleeding scant hgb 10.8 Results & Data Vital Signs (Past 12 Hours) Vital Signs Temp Pulse Resp BP Pulse Ox O2 Del Method 12/11/24 00:00 36.5 C 54 L 16 92/54 L 99 Room Air
[2024-12-11 09:46] VITALS: BP 103/68; PULSE 56; TEMP 98.2
[2024-12-11] MEDS ORDERED: bisacodyL 10 MG SUPP PR PRN (23:05)
== END 2024-12-11 14:15 | disposition home or self-care (01) | DRG 807 ==
LOC: OPB 11:31 → 4S1 11:32 → 4E2 12-10 02:00